=== PATIENT | female | born 1990 | race Caucasian/White ===

== ENCOUNTER 2019-04-02 07:32 | Inpatient (IN) ==
[2019-04-02] MEDS ORDERED: OXYTOCIN 30 UNITS/500 ML BAG IV PRN (07:43)
--- NOTE | 2019-04-02 08:01 | History & Physical Report ---
Date of Service April 02, 2019 Assessment & Plan (1) Encounter for induction of labor: (2) Post term at 41 weeks gestation: Pain currently well managed, will adjust according to patient distress heart tracing category 1 Running pitocin drip at 30 U/hr in 500 mL, will continue to monitor patient's tocometer and vitals status Present on Admission?: Yes History of Present Illness Primary Care Provider: 28 yo F at 41 weeks confirmed by ultrasound on 08/23/18 for ROLF 03/26/19. Here for scheduled induction of labor for post-dating. No chronic health issues, no complications with current other than starting iron supplementation. Currently not in any pain, has not had any abdominal cramping or pain. Good movement, baby goes through sleep and wake cycles. No vaginal fluid or blood loss. Labs Blood type: O- Antibody screen: Anti-D + 02/01/19(Rhogam given at 01/18/2019) H.2 g/dL Hct: 40.6% WBC: 9.64 Plt: 137K Rubella immune VDRL/RPR nonreactive Pap negative on 03/31/2018 Chlamydia negative Gonorrhea negative Cystic Fibrosis negative 2nd trimester Quad screen negative 1hr GTT: negative GBS negative Allergies Allergy/AdvReac Type Severity Reaction Status Date / Time No Known Allergies Allergy Verified 03/25/19 15:55 Home Medications Home Medications Medication Instructions Recorded Confirmed Type ferrous sulfate [Iron (ferrous 325 mg PO DAILY 04/02/19 04/02/19 History sulfate)] vit no.[id number] 1 tab PO HS 04/02/19 04/02/19 History [ Vitamin] Patient History Social History Preferred Language: [place]i Communication Ability: Effective Facilities Technician Required: No Beliefs That Will Affect Care: None marital status: Current Living Situation: Spouse Other Information That Helps Us Care for You: No Feels Safe at Home: Yes Safety Concerns: Feels Safe At This Time Smoking Status: Never smoker Do You Dip or Chew Tobacco: No Second Hand Exposure: No Tobacco Cessation Education Requested by Patient: No Hx Alcohol Use: No Hx Substance Use: No OB History Personal history of infertility G1 Spontaneous at 5 weeks G2 Spontaneous at 5 weeks G3 First term ASSEMBLER History No abnormal paps, no hx STDs Review of Systems no fever and no chills not sleeping well, only able to sleep 3 hours at a time no cough and no chest congestion no shortness of breath + edema; no chest pain, no chest pain at rest and no calf pain + heartburn and + diarrhea/loose stools; no abdominal pain, no nausea, no vomiting, no cramping and no constipation no abnormal vaginal bleeding Physical Exam Constitutional: well developed, well nourished and cooperative appears tired Respiratory: normal respiratory effort, lungs clear to auscultation no respiratory distress and no labored breathing Auscultation: no diminished lung sounds Cardiovascular: Rate/Rhythm: regular rate and regular rhythm Extremities: normal capillary refill, + pedal edema and + edema (1+ edema halfwa up calves bilaterally); no calf tenderness pedal and posterior tibial pulses difficult to palpate due to swelling Genitourinary: OB Exam Abdomen: + regular contractions (mild contractions per tocometer) Manual OB Exam: + cervical dilation 3 cm, + cervical effacement 70% (75) and + station -2 OB Exam Monitor Tracing: + external FHT monitor used and + normal FHT variability; no early decelerations present Results & Data Vital Signs (Past 12 Hours) Vital Signs Pulse BP 04/02/19 07:40 89 131/90 Monitoring External Monitor heart tracing show moderate variability with accelerations, no decels, maintaining baseline HR around 135 Tocodynamometer mild contractions every 2.5 - 6 minutes, pt not really feeling them Supervising Physician Co-Signing Physician Notes Resident Physician Supervision Note: I interviewed and examined the patient. Discussed with Dr. Mcmahon and agree with findings and plan as documented in the note. Any exceptions or clarifications are listed here: G1 here for postdates induction. Kerns bulb last night. Starting pit today. Fetus category one. Anticipate arom when indicated. Pain management per patient. Anticipate . Documented By: Alina Weeks MD, FACOG
[2019-04-02 08:18] LABS: Hematocrit (blood only) 40.6 % (37-47); Hemoglobin 14.2 g/dL (12.0-16.0); Mean Corpuscular Volume 92.3 fL (80-100); Mean Platelet Volume 12.2 fL (7.4-10.4); Platelet Count 137 K/uL (130-400); RDW Coefficient of Variation 15.1 % (11.5-14.5); RDW Standard Deviation 51.6 fL (36.4-46.3); White Blood Count 9.64 K/uL (4.8-10.8)
[2019-04-02] MEDS: LACTATED RINGER'S 1,000 ML IV PRN ×4 (08:37→19:57)
--- NOTE | 2019-04-02 11:58 | Labor Progress Brief Note ---
Date of Service April 02, 2019 Subjective Reason For Note: Routine Evaluation Current Pain Level(1-10): 4 Assessment & Plan (1) Encounter for induction of labor: (2) Post term at 41 weeks gestation: Physical Exam Genitourinary: OB Exam Abdomen: + vertex and + regular contractions Manual OB Exam: + cervical dilation 4 cm, + cervical effacement 70%, + station -2 and + amniotic fluid bloody OB Exam Monitor Tracing: + external FHT monitor used, + external uterine monitor used and + category I Results & Data Vital Signs (Past 12 Hours) Vital Signs Temp Pulse Resp BP 04/02/19 11:11 83 16 131/81 04/02/19 10:57 80 20 134/90 04/02/19 10:41 75 128/89 04/02/19 10:26 80 20 139/91 04/02/19 10:12 90 131/95 04/02/19 09:41 81 20 139/95 04/02/19 09:27 86 120/87 04/02/19 09:10 86 20 133/90 04/02/19 08:55 88 132/86 04/02/19 08:45 83 20 143/91 H 04/02/19 07:54 37 C 89 20 131/90 04/02/19 07:40 89 131/90
[2019-04-02] MEDS ORDERED: BUTORPHANOL TARTRATE 2 MG/ML VIAL IV STA (13:22)
[2019-04-02] MEDS ORDERED: BUPIVACAINE 0.25% 30 ML VIAL ONE (14:14)
[2019-04-02] MEDS ORDERED: ePHEDrine sulfate 50 MG/ML AMP ONE (14:15)
[2019-04-02] MEDS ORDERED: fentaNYL citrate 100 MCG/2 ML VIAL ONE (14:15)
[2019-04-02] MEDS ORDERED: fentaNYL 2MCG/ML ROPIV 1.25MG/ML 100 ML BAG EPI ONE (14:16)
[2019-04-02] MEDS ORDERED: NALOXONE HCL 1 MG in SODIUM CHLORIDE 0.9% 1000ML 1,000 ML IV PRN (14:49)
[2019-04-02] MEDS ORDERED: NALBUPHINE HCL INJ 10 MG/ML AMP IV PRN (14:49)
[2019-04-02] MEDS ORDERED: NALOXONE HCL 0.4 MG/1 ML VIAL/CARP IV PRN (14:49)
[2019-04-02] MEDS ORDERED: ePHEDrine sulfate 50 MG/ML AMP IV PRN (14:49)
[2019-04-02] MEDS ORDERED: ONDANSETRON INJ 2 MG/ML 2 ML VIAL IV PRN (14:49)
[2019-04-02] MEDS ORDERED: DiphenhydrAMINE HCL 50 MG/ML VIAL IV PRN (14:49)
--- NOTE | 2019-04-02 14:56 | Anesthesiology Consultation ---
Date of Service April 02, 2019 Assessment & Plan Chart Review Chart Review: Patient NOT seen in Pre Admission Testing and Acceptable Risk for Labor Epidural Consults Requested none ASA ASA2 Proposed Anesthesia Anesthesia Type: Labor Epidural and CSE Risk / Benefits Reviewed With: PT / POA / Parent / Guardian, Accepts Plan and Informed Consent Obtained History Height/Weight Height: 5 ft 2 in Weight: 72.688 kg Allergies Allergy/AdvReac Type Severity Reaction Status Date / Time No Known Allergies Allergy Verified 03/25/19 15:55 Medications Home Medications Medication Instructions Recorded Confirmed Last Taken ferrous sulfate [Iron (ferrous 325 mg PO DAILY 04/02/19 04/02/19 04/01/19 14:00 sulfate)] vit no.[id number] 1 tab PO HS 04/02/19 04/02/19 04/01/19 21:00 [ Vitamin] Active Medications Generic Name Dose Route Start Last Admin Trade Name Freq PRN Reason Stop Dose Admin Lactated Ringer's 1,000 mls @ 125 mls/hr 04/02/19 07:39 04/02/19 14:26 Lr IV 04/04/19 07:38 999 mls/hr .Q8H PRN Administration L&D Protocol Protocol Oxytocin 30 units in 500 mls @ 16 mls/hr 04/02/19 07:43 04/02/19 13:15 Pitocin IV 04/04/19 07:42 0.96 units/hr .Q24H PRN 16 mls/hr Labor Induction/Augmentation Titration Protocol 0.96 UNITS/HR NPO Date Last Intake of Fluids: 04/02/19 Time Last Intake of Fluids: 14:00 Date Last Intake of Solids: 04/02/19 Time Last Intake of Solids: 06:00 Past Medical History Medical History Infertility management (Inactive) Leakage of amniotic fluid Exercise / Class Metabolic Activity II 4-5 Yardwork/Stairs/Walk up hill Past Anesthesia History No Hx of Anesthesia Complications and No Family Hx of Anesthesia Complications History of PONV No Hx of PONV and No Hx of Motion Sickness Social History Smoking Status: Never smoker Do You Dip or Chew Tobacco: No Hx Alcohol Use: No Hx Substance Use: No substance use type: does not use Review of Systems no chest pain or sob Physical Exam Vital Signs Last Vital Signs Temp 37 C 04/02/19 14:29 Pulse 114 H 04/02/19 14:53 Resp 22 04/02/19 14:29 BP 133/85 04/02/19 14:29 Pulse Ox 98 04/02/19 14:53 ENMT Mouth: no TMJ abnormality Thyromental Distance: > or= 3.5 Finger Breadths Mallampati Class: II Neck normal visual inspection Respiratory normal respiratory effort Auscultation: lungs clear to auscultation bilaterally Cardiovascular Rate/Rhythm: regular rate and regular rhythm Musculoskeletal Spine: normal cervical ROM Neurologic moves all extremities Psychiatric Orientation: alert and oriented x 3 Testing Laboratory Results 04/02/19 08:08
--- NOTE | 2019-04-02 18:05 | Labor Progress Brief Note ---
Date of Service April 02, 2019 Subjective Reason For Note: Routine Evaluation Assessment & Plan (1) Encounter for induction of labor: Progressing (2) Post term at 41 weeks gestation: Physical Exam Genitourinary: Manual OB Exam: + cervical dilation 5 cm, + cervical effacement 90%, + station -1 and + amniotic fluid clear OB Exam Monitor Tracing: + external FHT monitor used, + external uterine monitor used and + category I Results & Data Vital Signs (Past 12 Hours) Vital Signs Temp Pulse Resp BP Pulse Ox 04/02/19 17:58 117 H 99 04/02/19 17:53 106 H 99 04/02/19 17:49 101 H 146/84 H 04/02/19 17:48 110 H 100 04/02/19 17:43 106 H 100 04/02/19 17:38 106 H 99 04/02/19 17:33 114 H 128/82 99 04/02/19 17:28 107 H 100 04/02/19 17:23 108 H 99 04/02/19 17:20 102 H 129/82 04/02/19 17:18 108 H 100 04/02/19 17:13 36.7 C 107 H 100 04/02/19 17:08 121 H 98 04/02/19 17:04 113 H 133/92 04/02/19 17:03 107 H 100 04/02/19 16:58 118 H 100 04/02/19 16:53 109 H 100 04/02/19 16:49 112 H 16 136/88 04/02/19 16:48 110 H 100 04/02/19 16:43 111 H 99 04/02/19 16:38 101 H 99 04/02/19 16:34 106 H 137/91 04/02/19 16:33 107 H 100 04/02/19 16:28 107 H 100 04/02/19 16:23 109 H 100 04/02/19 16:20 103 H 137/85 04/02/19 16:18 106 H 100 04/02/19 16:13 107 H 99 04/02/19 16:08 113 H 100 04/02/19 16:03 116 H 123/81 99 04/02/19 15:58 111 H 100 04/02/19 15:53 115 H 98 04/02/19 15:50 117 H 113/76 04/02/19 15:48 118 H 99 04/02/19 15:43 130 H 100 04/02/19 15:38 37 C 133 H 16 99 04/02/19 15:33 124 H 124/69 99 04/02/19 15:31 115 H 116/67 04/02/19 15:29 123 H 124/71 04/02/19 15:28 126 H 100 04/02/19 15:27 118 H 123/73 04/02/19 15:25 93 H 128/81 04/02/19 15:23 103 H 87/53 L 100 04/02/19 15:21 122 H 84/48 L 04/02/19 15:19 105 H 77/42 L 04/02/19 15:18 110 H 100 04/02/19 15:17 123 H 107/53 L 04/02/19 15:15 113 H 124/70 04/02/19 15:13 125 H 134/75 100 04/02/19 15:11 96 H 136/76 04/02/19 15:09 87 144/89 H 04/02/19 15:08 98 H 116/71 100 04/02/19 15:06 102 H 146/70 H 04/02/19 15:03 91 H 98 04/02/19 14:58 113 H 100 04/02/19 14:53 114 H 98 04/02/19 14:29 37 C 93 H 22 133/85 04/02/19 14:04 101 H 20 142/92 H 04/02/19 13:40 88 143/79 H 04/02/19 12:19 75 139/85 04/02/19 12:03 36.7 C 20 04/02/19 12:02 82 158/97 H 04/02/19 11:11 83 16 131/81 04/02/19 10:57 80 20 134/90 04/02/19 10:41 75 128/89 04/02/19 10:26 80 20 139/91 04/02/19 10:12 90 131/95 04/02/19 09:41 81 20 139/95 04/02/19 09:27 86 120/87 04/02/19 09:10 86 20 133/90 04/02/19 08:55 88 132/86 04/02/19 08:45 83 20 143/91 H 04/02/19 07:54 37 C 89 20 131/90 04/02/19 07:40 89 131/90
[2019-04-02] MEDS: fentaNYL 2MCG/ML ROPIV 1.25MG/ML 100 ML BAG EPI PRN (22:06)
[2019-04-03] MEDS: fentaNYL 2MCG/ML ROPIV 1.25MG/ML 100 ML BAG EPI PRN (03:43)
[2019-04-03] MEDS ORDERED: BUTORPHANOL TARTRATE 2 MG/ML VIAL ONE (03:50)
[2019-04-03] MEDS ORDERED: BUTORPHANOL TARTRATE 2 MG/ML VIAL IV ONE (03:58)
[2019-04-03] MEDS ORDERED: CEFAZOLIN 1000MG 1,000 MG/7.5 ML SYR IV ONE (04:00)
[2019-04-03] MEDS: OXYTOCIN 30 UNITS/500 ML BAG IV PRN ×2 (04:00→04:34)
[2019-04-03 04:38] LABS: Base Excess Cord Venous Blood -4.9 mEq/L (-7.7-1.9); Cord Venous Blood HCO3 21 mmol/L (18.4-26.8); Cord Venous Blood PCO2 42 mmHg (30.4-57.2); Cord Venous Blood PO2 31 mmHg (14.1-43.3); Cord Venous Blood pH 7.32 (7.20-7.44)
[2019-04-03] MEDS ORDERED: OXYCODONE/ACETAMINOPHEN 5mg/325mg TAB PO PRN (05:26)
[2019-04-03] MEDS ORDERED: HYDROCORTISONE ACETATE 25 MG SUPP PR PRN (05:26)
[2019-04-03] MEDS ORDERED: SUPERCREAM 0.870% 15 GM JAR EXT PRN (05:26)
[2019-04-03] MEDS ORDERED: BENZOCAINE 20% AER SPR 82.5 GM CAN EXT PRN (05:26)
[2019-04-03] MEDS ORDERED: DIPHTHERIA/TETANUS/PERTUSSIS 0.5 ML SYR/VIAL IM ONE (05:26)
[2019-04-03] MEDS ORDERED: BISACODYL 10 MG SUPP PR PRN (05:26)
[2019-04-03] MEDS ORDERED: OXYTOCIN 30 UNITS/500 ML BAG IV PRN (05:26)
[2019-04-03] MEDS: IBUPROFEN 600 MG TAB PO PRN ×4 (06:47→19:57)
--- NOTE | 2019-04-03 07:31 | Anesthesia Procedure Note ---
Date of Service April 03, 2019 Anesthesia Post Epidural Note Vital Signs Vital Signs: Temp Pulse Resp BP Pulse Ox 36.4 C L 139 H 18 137/79 99 04/03/19 05:20 04/03/19 07:09 04/03/19 05:20 04/03/19 07:09 04/03/19 05:13 Pain Intensity Abdomen: Pain Intensity: 5 Notes Mental Status: alert / awake / arousable Patient Amnestic to Procedure: Yes Nausea / Vomiting: adequately controlled Pain: adequately controlled Airway Patency, RR, SpO2: stable & adequate BP & HR: stable & adequate Hydration State: stable & adequate Anesthetic Complications: no major complications apparent and Pt Satisfied with anesthetic care
[2019-04-03] MEDS: DOCUSATE SODIUM 100 MG CAP PO SCH ×2 (12:19→19:58)
[2019-04-03] MEDS: PRENATAL VITAMIN 1 TAB PO SCH (12:19)
[2019-04-04] MEDS: IBUPROFEN 600 MG TAB PO PRN ×6 (00:05→22:11)
[2019-04-04] MEDS: ACETAMINOPHEN 325 MG TAB PO PRN ×3 (01:56→20:23)
[2019-04-04 06:41] LABS: Hematocrit (blood only) 28.4 % (37-47); Hemoglobin 9.8 g/dL (12.0-16.0)
--- NOTE | 2019-04-04 07:04 | Obstetrical Progress Note ---
Date of Service April 04, 2019 Assessment & Plan (1) Vaginal delivery: Patient recovering well. Had 3rd degree with VAVD and is sore but says she does not want to use any narcotic and has been OK with NSAIDs. Ambulating and wearing street clothes, passing gas. Agreeable to staying until tomorrow AM. Subjective Ambulation: ambulating normally Voiding: no voiding problems Passing Gas:: Yes Diet Tolerance:: regular diet Lochia:: Small Feeding Type:: breast feeding Physical Exam Constitutional WD/WN, vitals as above Eyes PERRL, conjunctivae normal, anicteric sclerae Neck normal visual inspection Respiratory normal respiratory effort and able to speak in complete sentences; no respiratory distress and no labored breathing Cardiovascular Rate/Rhythm: regular rate and regular rhythm Extremities: no edema Chest (Breasts) Chest: normal inspection of chest Gastrointestinal (Abdomen) Inspection/Auscultation: abdomen normal to inspection Soft, postgravid Psychiatric A+Ox3, euthymic affect Genitourinary OB Exam Abdomen: + fundal height Fundus: + firm and + relation to umbilicus (fundus just below umbilicus); not tender Results & Data Vital Signs (Past 12 Hours) Vital Signs Temp Pulse Resp BP Pulse Ox 04/04/19 04:15 36.7 C 94 H 18 134/90 97 04/03/19 23:40 36.8 C 92 H 18 120/79 100 04/03/19 20:00 36.6 C 96 H 18 114/81 99
[2019-04-04] MEDS: PRENATAL VITAMIN 1 TAB PO SCH (08:16)
[2019-04-04] MEDS: DOCUSATE SODIUM 100 MG CAP PO SCH ×2 (08:17→20:23)
--- NOTE | 2019-04-04 09:57 | Ultrasound Report ---
RIGHT LOWER EXTREMITY VENOUS DOPPLER HISTORY: posterior knee pain r/o DVT COMPARISON STUDY: None. FINDINGS: There is normal compressibility, flow, and augmentation within the right lower extremity de ep venous system. IMPRESSION: No DVT within the right lower extremity Electronically signed by: Michel Allan M.D. 04/04/2019 9:56 AM
--- NOTE | 2019-04-04 10:13 | Delivery Summary ---
DATE OF OPERATION: 04/02/2019 PROCEDURE: Vacuum-assisted vaginal delivery with a 3A perineal laceration repair and vaginal sidewall laceration repair. SURGEON: Tai Moyer MD PREOPERATIVE DIAGNOSES: 1. Single intrauterine at 41 weeks gestational age. 2. Induction of labor. POSTOPERATIVE DIAGNOSES: 1. Single intrauterine at 41 weeks gestational age. 2. Induction of labor. 3. Maternal exhaustion. 4. Prolonged second stage of labor. ESTIMATED BLOOD LOSS: 500 mL. DRAINS: Straight catheterization. FLUIDS: Continuous lactated ringer. URINE OUTPUT: Not measured. COMPLICATIONS: A partial third-degree laceration which appeared to be a 3A with partial disruption of the capsule. FINDINGS: Viable infant with weight pending, Apgars of 5 and 9 at 1 and 5 minutes respectively. INDICATIONS: Ms. Tong is a 28-year-old G3, P0-2-0 admitted at 41 weeks for late term induction of labor. At time of presentation, the patient was found to be 3 cm dilated, 75% effaced, -2 station. The patient was started on oxytocin per regular protocol. She continued in labor and was ruptured approximately 4 hours later and was noted to have clear fluid. The patient continued to progress in labor and at around 11:30 became complete and felt the urge to push, and +2 station. The patient pushed for over 3 hours, and on evaluation, the patient was noted to have significant maternal exhaustion. Management options at that point were discussed including proceed with a primary section versus a vacuum-assisted vaginal delivery. The risks of a vacuum-assisted delivery were discussed including the risk of a hematoma as well as perineal lacerations. The patient opted to proceed with a vacuum-assisted delivery. DESCRIPTION OF PROCEDURE: The patient progressed to 10 cm dilated, 100% effaced, positive 2-3 station. The patient had pushed to achieve +3 station and was noted to be making progress with pushing, although slight. The patient had pushed for approximately 3 hours and as noted above a discussion of how to proceed was performed. The patient opted to proceed with a vacuum-assisted delivery. The vacuum was applied 2 cm anterior to the posterior fontanelle, was insufflated within the green zone. The patient pushed over 3 contractions to achieve . Vacuum pressure was released between contractions. The vacuum was then removed allowing the maternal power to push the last few pushes to achieve delivery. The patient pushed over approximately 2 more contractions to deliver the head, which was noted to come out in JAC position. The head of the rest into the left transverse. The patient was asked to stop pushing to evaluate for a nuchal cord, there was noted to be 1, which was easily reduced. The patient was asked to push to help deliver the anterior shoulder which did not immediately deliver. Very gentle traction was applied to see if this would help deliver the shoulder which was also not performed. The patient was placed in Carrington position and the head of the bed was lowered. Additional push occurred with gentle traction and delivery was not achieved. Attempted to deliver the posterior shoulder was performed which was able to bring the shoulder up to near the perineum. The patient was asked to stop pushing again and asked the OB nurse to please apply suprapubic pressure. After the suprapubic pressure was applied, asked the patient pushed once again and the shoulder did deliver. Body and shoulders quickly followed. was noted to be floppy on delivery and the cord was double clamped and cut, and the taken to the awaiting nursery staff for evaluation and resuscitation. The did become vigorous little over a minute after delivery with Apgars as noted above. Cord blood and cord sampling were then obtained. Attention was then turned to delivery of the placenta which was delivered intact with a 3-vessel cord, gentle cord traction. On inspection of the perineum, vagina, and cervix, there was noted to be a deep sulcal laceration on the left extending just distal to the cervix being continued for the perineal laceration, which was noted to be a partial third-degree likely 3A, possibly 3B, but this was just slight disruption of the external anal sphincter capsule. At that time, I asked for 1 gram of Ancef, the patient also only had moderate control through the epidural and asked the patient if she would like IV pain medications for the repair, which she was agreeable to. In addition, we also used a 20 mL of lidocaine to aid with the perineal repair. The repair was first initiated with 3-0 Vicryl starting on the deep left sulcal laceration in a continuous running locked stitches continued down to the level of the third-degree 3A perineal laceration. The external anal sphincter capsule was noted to be disrupted on the anterior aspect which was reapproximated and reinforced with 2-0 Vicryl interrupted stitch on both the anterior and inferior aspect. A second-degree crown traditional stitch was then performed to close the second-degree perineal laceration. The perineal laceration noted to have skin involvement to near the anal verge which was reapproximated at the anal verge up to the level of the standard second-degree perineal with interrupted stitch of 3-0 Vicryl. After completion of the repair was performed, fundal massage was once again performed and bleeding was noted to be minimal. The procedure was then ended at that time. A conversation was performed with the patient explaining the procedure as well as repair of the third degree and the need for good bowel regimen for the next 3-4 weeks. The patient understood. Both mother and were stable in the immediate post-delivery. Needle, sponge, and instrument counts were correct at the completion of the case. I attest to the content of the Intraoperative Record and any orders documented therein. Any exceptions are noted below. UGO
[2019-04-04] MEDS ORDERED: BISACODYL 5 MG TABEC PO SCH (20:00)
[2019-04-05] MEDS: IBUPROFEN 600 MG TAB PO PRN ×2 (06:04→11:04)
--- NOTE | 2019-04-05 07:05 | Obstetrical Progress Note ---
Date of Service <Stella Mcmahon MD - Last Filed: 04/05/19 07:14> April 05, 2019 Assessment & Plan <Stella Mcmahon MD - Last Filed: 04/05/19 07:14> (1) Encounter for induction of labor: (2) Post term at 41 weeks gestation: Vital signs reviewed and WNL today. Blood type: O-, antibody positive A, GBS neg Pt doing well clinically Encouraging ambulation, monitoring pain Pt breast feeding. Counselled on discharge instructions Subjective <Stella Mcmahon MD - Last Filed: 04/05/19 07:14> Voiding: no voiding problems (mild pain with urination 2/2 vaginal tear) Feeding Type:: breast feeding Current Pain Level(1-10): 2 mild pain while voiding 2/2 vaginal tear, otherwise no complaints. No nausea, vomiting. Able to tolerate liquids and diet, ambulating well. No issues with at this time. Constitutional: + as per Subjective / HPI Respiratory: no cough and no dyspnea Cardiovascular: + edema; no chest pain, no chest pain at rest and no calf pain Breast: no breast pain Gastrointestinal: + heartburn; no abdominal pain, no nausea, no vomiting, no cramping and no constipation +2 bowel movements this morning Genitourinary (female): + dysuria; no difficulty urinating Physical Exam <Stella Mcmahon MD - Last Filed: 04/05/19 07:14> Constitutional well developed, well nourished and cooperative Respiratory normal respiratory effort, lungs clear to auscultation no respiratory distress and no labored breathing Auscultation: no diminished lung sounds Cardiovascular Rate/Rhythm: regular rate and regular rhythm Extremities: normal capillary refill, + pedal edema and + edema (1+ edema halfwa up calves bilaterally); no calf tenderness Genitourinary Speculum/Bimanual Exam: + uterus enlarged (firm, below umbilicus); uterus nontender Results & Data <Stella Mcmahon MD - Last Filed: 04/05/19 07:14> Vital Signs (Past 12 Hours) Vital Signs Temp Pulse Resp BP Pulse Ox 04/05/19 04:05 37.0 C 72 18 121/87 04/04/19 23:30 36.6 C 86 18 107/70 99 04/04/19 20:25 144/91 H 04/04/19 19:20 124/80 <Anibal Ortega MD, FACOG - Last Filed: 04/05/19 07:27> Co-Signing Physician Notes Resident Physician Supervision Note: I interviewed and examined the patient. Discussed with Dr. Mcmahon and agree with findings and plan as documented in the note. Any exceptions or clarifications are listed here: [None] Documented By: Anibal Ortega MD, FACOG
[2019-04-05] MEDS: DOCUSATE SODIUM 100 MG CAP PO SCH (08:29)
[2019-04-05] MEDS: PRENATAL VITAMIN 1 TAB PO SCH (08:29)
--- NOTE | 2019-04-09 10:20 | Discharge Summary ---
PROCEDURES WHILE ADMITTED: Vacuum-assisted vaginal delivery and third-degree perineal laceration and vaginal sidewall laceration repairs. HOSPITAL COURSE: The patient was admitted for scheduled induction of labor at 41 weeks gestational age. At time of presentation, she was found to be 3 cm dilated, 75% effaced, -2 station. The patient was started on oxytocin per regular protocol and progressed in labor to complete-complete +2, at which time she did feel the need to push and pushed for approximately 3 hours with descent to approximately +2 station and the patient ultimately underwent a vacuum-assisted vaginal delivery secondary to maternal exhaustion. There was noted to be a third-degree laceration, which was repaired per operative report. The patient remained in house for 2 days post-delivery and was doing well at time of discharge without any significant complication during her post-delivery period. The patient was given both verbal and written discharge instructions prior to discharge and was discharged home in stable condition with 6-week visit plan for followup. The patient was given detailed instructions for perineal laceration care.
== END 2019-04-05 12:10 | disposition home or self-care (01) | DRG 768 ==
LOC: 4S1 07:32 → 4S2 04-03 08:41

== ENCOUNTER 2020-08-19 01:49 | Inpatient (IN) ==
[2020-08-19] MEDS ORDERED: LACTATED RINGER'S 1,000 ML IV PRN (02:44)
[2020-08-19] MEDS ORDERED: OXYTOCIN 30 UNITS/500 ML BAG IV PRN ×3 (02:44→07:42)
--- NOTE | 2020-08-19 03:00 | History & Physical Report ---
Date of Service August 19, 2020 Assessment & Plan (1) Supervision of normal intrauterine in multigravida: Admit to L&D - negative pressure room. Labs, EFM/toco. Because of current hospital policy requiring isolation for any patient within 0- 20 days of a positive COVID test, I discussed with patient that she will need to follow this policy. She and her Jerel were understandably disappointed that he will not be able to stay. Patient declined to augment labor with pitocin, hoping that there may be a difference in policy at shift change in the morning. I do not see this likely happening, as she will still be Day 20 until midnight tonight. I do not expect her to still be at that time, whether we augment contractions or allow for natural labor. She is worried about a repeat of the events of prior delivery - pushing for 3 hours, vacuum assist, 3rd degree tear, shoulder dystocia. History of Present Illness Chief Complaint: labor Primary Care Provider: NO PCP 30yo @ 39 09/11, with spontaneous rupture of membranes, irregular contractions. + movement. No vaginal bleeding. Clear fluid rupture at approx midnight. complicated by short interval, history of shoulder dystocia, vacuum assisted delivery, and 3rd degree perineal laceration. She also had one positive covid test 07/30/20. She had felt that she and were actually sick with covid the month prior, and there was discussion earlier in the about whether this positive test was a holdover from her prior ill ness, however there was never a positive test from the time of the prior illness confirming COVID. She and have been asymptomatic since prior to the positive test. Allergies Allergy/AdvReac Type Severity Reaction Status Date / Time No Known Allergies Allergy Verified 08/14/20 14:16 Home Medications Medication Instructions Recorded Confirmed Type vit no.[id number] 1 tab PO DAILY 08/19/20 08/19/20 History [ Vitamin] Patient History Medical History History of chicken pox Infertility management Leakage of amniotic fluid Family History Mother Breast cancer Social History Smoking Status: Never smoker Second Hand Exposure: No; Do You Dip or Chew Tobacco: No; Tobacco Cessation Education Requested by Patient: No Hx Alcohol Use: No Hx Substance Use: No Preferred Language: Polish Communication Ability: Effective Angle Shearer Required: No Beliefs That Will Affect Care: None marital status: marital status details: Jerel Tong (30) [phone] Current Living Situation: Spouse and Family Current Living Situation Comment: and daughter current occupational status: unemployed current occupation: homemaker Feels Safe at Home: Yes Safety Concerns: Feels Safe At This Time Assistive Devices: None Review of Systems All systems reviewed & are unremarkable except as noted in HPI & below Physical Exam Physical Exam: FHT Cat 1 [place] Q 2-5 min + nitrizine, grossly ruptured. Cervix 4/90/-2 Constitutional: WD/WN, vitals as above Respiratory: normal respiratory effort, lungs clear to auscultation no respiratory distress Cardiovascular: Rate/Rhythm: regular rate and regular rhythm Gastrointestinal (Abdomen): Inspection/Auscultation: abdomen normal to inspection Percussion/Palpation: abdomen soft; abdomen nontender Gravid. No s/s chorio or abruption. Skin: no rashes, warm and dry Psychiatric: A+Ox3, euthymic affect Results & Data ([facility]) Vital Signs (Past 12 Hours) Vital Signs Pulse BP 08/19/20 02:26 82 134/89 Coding Level of Care Code None Diagnoses Supervision of normal intrauterine in multigravida Z34.80
[2020-08-19] MEDS ORDERED: ePHEDrine sulfate 50 MG/ML AMP ONE (03:11)
[2020-08-19] MEDS ORDERED: fentaNYL 2MCG/ML ROPIVACAINE 1.25MG/ML 100 ML BAG EPI ONE (03:11)
[2020-08-19] MEDS ORDERED: BUPIVACAINE 0.25% 30 ML VIAL ONE (03:11)
[2020-08-19] MEDS ORDERED: fentaNYL citrate 100 MCG/2 ML VIAL ONE (03:11)
[2020-08-19] MEDS ORDERED: SODIUM CHLORIDE 0.9% INJ 10 ML VIAL ONE (03:11)
[2020-08-19 03:16] LABS: Hematocrit (blood only) 38.1 % (37-47); Hemoglobin 12.2 g/dL (12.0-16.0); Mean Corpuscular Hemoglobin 27.7 pg (25-34); Mean Corpuscular Volume 86.6 fL (80-100); Mean Platelet Volume 10.5 fL (7.4-10.4); Platelet Count 251 K/uL (130-400); RDW Coefficient of Variation 14.2 % (11.5-14.5); RDW Standard Deviation 44.6 fL (36.4-46.3); White Blood Count 11.51 K/uL (4.8-10.8)
--- NOTE | 2020-08-19 05:23 | Anesthesiology Consultation ---
Date of Service August 19, 2020 Assessment & Plan Chart Review Chart Review: Acceptable Risk for Surgery, Patient NOT seen in Pre Admission Testing and Acceptable Risk for Labor Epidural Consults Requested none ASA ASA2 Proposed Anesthesia Anesthesia Type: Labor Epidural and CSE History Height/Weight Height: 5 ft 2 in Weight: 63.049 kg Allergies Allergy/AdvReac Type Severity Reaction Status Date / Time No Known Allergies Allergy Verified 08/14/20 14:16 Medications Home Medications Medication Instructions Recorded Confirmed Last Taken vit no.[id number] 1 tab PO DAILY 08/19/20 08/19/20 08/18/20 08:00 [ Vitamin] Active Medications Generic Name Dose Route Start Last Admin Trade Name Freq PRN Reason Stop Dose Admin Lactated Ringer's 1,000 mls @ 125 mls/hr 08/19/20 02:44 08/19/20 04:03 Lr IV 08/21/20 02:43 999 mls/hr .Q8H PRN Administration L&D Protocol Protocol NPO Date Last Intake of Fluids: 08/19/20 Time Last Intake of Fluids: 04:00 Past Medical History Medical History History of chicken pox Infertility management Leakage of amniotic fluid Exercise / Class Metabolic Activity II 4-5 Yardwork/Stairs/Walk up hill Past Family History Family History Mother Breast cancer Past Anesthesia History No Hx of Anesthesia Complications and No Family Hx of Anesthesia Complications History of PONV No Hx of PONV and No Hx of Motion Sickness Social History Smoking Status: Never smoker Do You Dip or Chew Tobacco: No Hx Alcohol Use: No Hx Substance Use: No substance use type: does not use Physical Exam Vital Signs Last Vital Signs Temp 37.0 C 08/19/20 02:36 Pulse 102 H 08/19/20 05:16 Resp 18 08/19/20 02:36 BP 126/85 08/19/20 05:01 Pulse Ox 86 L 08/19/20 05:21 Testing Laboratory Results 08/19/20 03:00
[2020-08-19] MEDS ORDERED: ONDANSETRON INJ 2 MG/ML 2 ML VIAL IV PRN (05:50)
[2020-08-19] MEDS ORDERED: PROMETHAZINE HCL 25 MG in SODIUM CHLORIDE 0.9% 50 ML IV PRN (05:50)
[2020-08-19] MEDS ORDERED: NALOXONE HCL 1 MG in SODIUM CHLORIDE 0.9% 1000ML 1,000 ML IV PRN (05:50)
[2020-08-19] MEDS ORDERED: ePHEDrine sulfate 50 MG/ML AMP IV PRN (05:50)
[2020-08-19] MEDS ORDERED: NALOXONE HCL 0.4 MG/1 ML VIAL/CARP IV PRN (05:50)
[2020-08-19] MEDS ORDERED: fentaNYL 2MCG/ML ROPIVACAINE 1.25MG/ML 100 ML BAG EPI PRN (05:50)
[2020-08-19] MEDS ORDERED: diphenhydrAMINE 50 MG/ML VIAL IV PRN (05:50)
[2020-08-19] MEDS ORDERED: MoRPHine SULFATE 10 MG/ML CARP/VIAL ONE (06:10)
--- NOTE | 2020-08-19 06:53 | Delivery Summary ---
Vaginal Delivery Summary Date of Service August 19, 2020 Vaginal Delivery Summary and 2nd Degree LAC Vaginal Delivery Summary: Pre-delivery diagnoses: 30yo @ 39 09/11, spontaneous labor, COVID+, short interval, h/o shoulder dystocia Post-delivery diagnoses: same, 2nd degree perineal laceration Procedure: spontaneous vaginal delivery, repair of 2nd degree perineal lac Surgeon: Cleo Nguyen DO Complications: none Findings: Viable female . Apgars: 8/9 . Weight pending, please see nursery records Estimated blood loss: 300ml Description of delivery: The patient progressed to complete with spinal anesthesia. She then began to push. She spontaneously vaginally delivered a viable from the cephalic presentation. The head delivered in JAC position. The anterior shoulder delivered, followed by the posterior shoulder, followed by the body. No nuchal cord. The baby was placed on mother's abdomen and a spontaneous cry was heard. Delayed cord clamping was employed, and the cord was doubly clamped and cut. Cord blood was obtained. The placenta was delivered spontaneously intact with a 3-vessel cord. The uterus and vagina were swept of clots and debris. IV pitocin was given. The uterus became firm. The cervix, vagina, and perineum were inspected and a 2nd degree laceration was repaired in standard fashion with 3-0 Vicryl. Rectal exam revealed no tear into rectum, and intact anal sphincter. Excellent hemostasis was observed. The mother and baby are recovering in stable and good condition in the room. Sponge, needle and instrument counts were correct x 2. Cleo Nguyen DO [facility] [place] Vaginal Delivery Charge Vaginal Delivery Codes: 16896 global code for the antepartum, delivery, and post-
[2020-08-19] MEDS ORDERED: ACETAMINOPHEN 325 MG TAB PO PRN (07:42)
[2020-08-19] MEDS ORDERED: BENZOCAINE 20% AER SPR 82.5 GM CAN EXT PRN (07:42)
[2020-08-19] MEDS ORDERED: oxyCODONE/ACETAMINOPHEN 5mg/325mg TAB PO PRN (07:42)
[2020-08-19] MEDS ORDERED: SUPERCREAM 0.870% 15 GM JAR EXT PRN (07:42)
[2020-08-19] MEDS ORDERED: DIPHTHERIA/TETANUS/PERTUSSIS 0.5 ML SYR/VIAL IM ONE (07:42)
[2020-08-19] MEDS ORDERED: HYDROCORTISONE ACETATE 25 MG SUPP PR PRN (07:42)
[2020-08-19] MEDS ORDERED: bisacodyL 10 MG SUPP PR PRN (07:42)
[2020-08-19] MEDS ORDERED: PRENATAL VITAMIN 1 TAB PO SCH (09:00)
[2020-08-19] MEDS: DOCUSATE SODIUM 100 MG CAP PO SCH (12:15)
[2020-08-19] MEDS: PRENATAL VITAMIN 1 TAB PO SCH (12:15)
[2020-08-19] MEDS: IBUPROFEN 600 MG TAB PO PRN ×2 (12:58→19:28)
[2020-08-20] MEDS: DOCUSATE SODIUM 100 MG CAP PO SCH ×2 (00:07→08:13)
[2020-08-20] MEDS: IBUPROFEN 600 MG TAB PO PRN ×2 (02:28→08:13)
[2020-08-20 06:45] LABS: Hematocrit (blood only) 30.2 % (37-47); Hemoglobin 9.8 g/dL (12.0-16.0)
--- NOTE | 2020-08-20 07:08 | Obstetrical Progress Note ---
Date of Service <Filiberto Mckeon MD - Last Filed: 08/20/20 07:11> August 20, 2020 Assessment & Plan <Filiberto Mckeon MD - Last Filed: 08/20/20 07:11> (1) state: 30 y/o s/p on 08/19/20 PPD1 at 39w1d. Stable. O neg. Rubella immune. - meeting milestones. Eating, stooling, ambulating. - - continue routine care - Hb 12.2->9.8, reasonable - tentative dispo today Subjective <Filiberto Mckeon MD - Last Filed: 08/20/20 07:11> Ambulation: ambulating normally Voiding: no voiding problems Passing Gas:: Yes Diet Tolerance:: regular diet Lochia:: Moderate Feeding Type:: breast feeding Current Pain Level(1-10): 3 Doing well. Denies any new complaints. Feels ready for dispo home today. Review of Systems Denies fever, chills, sweats Denies shortness of breath, chest pain, palpitations. Denies breast pain. Denies dysuria. Denies headache or changes in vision. Denies nausea/vomiting. Denies numbness, tingling, weakness. Physical Exam <Filiberto Mckeon MD - Last Filed: 08/20/20 07:11> General: Alert, oriented. No acute distress. Cardiac: Regular rate and rhythm, no murmurs/rubs/gallops. Respiratory: Clear to auscultation bilaterally, no wheezes/rales/rhonchi. No respiratory distress. Abdomen: , soft, nontender. Uterus: Uterine fundus firm, palpable 1cm above umbilicus. Lower Extremities: No lower extremity edema or swelling. No deep calf pain. Bennett's negative bilaterally. Results & Data ([facility]) <Filiberto Mckeon MD - Last Filed: 08/20/20 07:11> Vital Signs (Past 12 Hours) Vital Signs Temp Pulse Resp BP Pulse Ox 08/20/20 05:00 36.7 C 84 18 109/76 98 08/20/20 00:30 36.6 C 97 H 18 106/71 98 08/19/20 19:46 36.5 C 84 18 125/89 98 Medications Administered <Augusto Brown Jr, MD, FACOG - Last Filed: 08/20/20 07:38> Co-Signing Physician Notes Resident Physician Supervision Note: I was present with Dr. Mckeon during the history and exam. I discussed the case with the resident and agree with the findings and plan as documented in the note. A ny exceptions or clarifications are listed here: Doing well, desires d/c. Instructions given, f/u in 6 weeks for pp check. Documented By: Augusto Brown Jr, MD, FACOG
[2020-08-20] MEDS: PRENATAL VITAMIN 1 TAB PO SCH (08:13)
[2020-08-20] MEDS ORDERED: bisacodyL 5 MG TABEC PO SCH (20:00)
--- NOTE | 2020-08-21 16:29 | Anesthesiology Progress Note ---
Date of Service August 21, 2020 Anesthesia Post Procedure Pain Intensity Bilateral Episiotomy/Laceration: Pain Intensity: 0 Transfer of Care Handoff Completed per policy Notes Mental Status: alert / awake / arousable Patient Amnestic to Procedure: Yes Nausea / Vomiting: adequately controlled Pain: adequately controlled Airway Patency, RR, SpO2: stable & adequate BP & HR: stable & adequate Hydration State: stable & adequate Neuraxial Anesthesia: was administered and sensory block is resolving Anesthetic Complications: no major complications apparent
== END 2020-08-20 11:47 | disposition home or self-care (01) | DRG 807 ==
LOC: OPB 01:49 → 4W 01:57 → 4S2 10:59